=== PATIENT | female | born 1965 | race Caucasian/White ===

== ENCOUNTER → 2016-07-02 | Outpatient (CLI) | payer OTHER ==
[~2016-07-02] MED LIST: GADAVIST IV PRN; SLEEPING PILL
--- NOTE | 2016-07-02 10:47 | DIAGNOSTIC IMAGING REPORT ---
FLUOROSCOPICALLY GUIDED RIGHT SHOULDER ARTHROGRAM PRIOR TO MRI CLINICAL HISTORY: Right shoulder pain. COMPARISON STUDY: No previous studies for comparison. Fluoroscopy time: 21 seconds. FINDINGS: A single fluoroscopic image was obtained. The procedure, risks and benefits were discussed with the patient. The patient agreed to the procedure and informed written consent was obtained. The procedure was performed by Dr. Singer following a timeout. Skin overlying the right glenohumeral joint was prepped and draped in sterile fashion and local anesthesia was achieved with 1% lidocaine. Utilizing intermittent fluoroscopy, a 2 and 1/2 inch, 22-gauge needle was directed into the right glenohumeral joint. Positioning within the joint space was confirmed with injection of a small amount of contrast. At this time, 10 cc of a mixture of 0.05 cc of Gadavist, 10 cc of normal saline and 10 cc of Optiray 300 was injected into the right glenohumeral joint. The needle was removed. The patient tolerated the procedure well and no immediate complications were evident. The patient was transported to MRI. IMPRESSION: Fluoroscopically guided right shoulder arthrogram prior to MRI. Electronically signed by: Kyle Singer M.D. 07/02/2016 10:45 AM Dictated Date/Time: 07/02/2016 10:43 AM
--- NOTE | 2016-07-02 11:36 | DIAGNOSTIC IMAGING REPORT ---
MRI ARTHROGRAM OF THE RIGHT SHOULDER CLINICAL HISTORY: Right shoulder pain. COMPARISON STUDY: No priors. TECHNIQUE: Following the intra-articular administration of gadolinium contrast, MR arthrogram of the right shoulder was performed utilizing various T1 and T2 weighted sequences in the axial, sagittal, coronal planes. Note that interpretation is suboptimal without plain film correlate. FINDINGS: Rotator cuff: There is tendinopathy of the supraspinatous tendon with a large high-grade partial thickness tear (nearly full-thickness). This is located anteriorly approximately 10 mm from the leading edge. A small focal full-thickness tear is suggested on coronal image #8. No musculotendinous retraction is seen. There is tendinopathy with mild undersurface tearing of the infraspinatus tendon. The teres minor and subscapularis tendons are intact. There is trace subacromial and subdeltoid bursal fluid. Minimal degenerative change is seen at the acromioclavicular joint. Biceps tendon: The long head of the biceps tendon is normal in signal intensity and located within the bicipital groove. The anchor is maintained. Labrum: There is truncation and circumferential tearing of the labrum. Shoulder joint: The joint space is well distended with intra-articular contrast. There is a defect seen within the inferior glenohumeral ligament on image #15 with contrast extending all the humeral shaft. This is consistent with a HAGL lesion. The articular cartilage over the glenoid is well maintained. Cystic degenerative changes seen in the posterior humeral head. No fracture is seen. Musculature and soft tissues: The musculature of the shoulder is normal in bulk and signal intensity. No atrophy is seen. IMPRESSION: 1. There is evidence of a HAGL lesion. 2. There is tendinopathy with a large high-grade partial thickness tear of the supraspinatous tendon. A small focus of full-thickness tearing is suggested. There is no musculotendinous retraction. 3. There is tendinopathy with mild partial thickness undersurface tearing of the infraspinatus tendon. 4. Circumferential labral tearing. Electronically signed by: Phu Garcia M.D. 07/02/2016 11:34 AM Dictated Date/Time: 07/02/2016 11:24 AM
== END | disposition home or self-care (01) ==
LOC: C.MRIBC 09:57
PROVIDERS: ATTEND Orthopaedic Surgery
DX: M75.81 Other shoulder lesions, right shoulder (principal); S46.011A Strain of muscle(s) and tendon(s) of the rotator cuff of right shoulder, initial encounter; X58.XXXA Exposure to other specified factors, initial encounter